=== PATIENT | female | born 1985 | race Caucasian/White ===

== ENCOUNTER 2020-06-22 02:27 | Emergency (ER) | payer SELFPAY ==
[2020-06-22] MEDS ORDERED: Lidocaine 1% PF 5 ML VIAL ONE (03:39)
[2020-06-22] MEDS ORDERED: cefTRIAXone\\ROCEPHIN 500 MG VIAL ONE ×2 (03:39→03:47)
[2020-06-22] MEDS ORDERED: Water For Inject, Bacteriostat 30 ML ONE (03:47)
[2020-06-30 18:53] LABS: GC by PCR Inconclusive (NotDetected)
[2020-06-30 18:54] LABS: Chlamydia by PCR Inconclusive (NotDetected)
== END 2020-06-22 04:04 | disposition home or self-care (01) ==
LOC: ERS 02:27
DX: N72 Inflammatory disease of cervix uteri (principal)
CPT/HCPCS: 72170; 87480; 87491; 87510; 87591; 87660; 96372; J0696

== ENCOUNTER 2020-10-05 18:17 | Emergency (ER) | payer MEDICAID | END 2020-10-05 19:06 | disposition home or self-care (01) | LOC: ERS 18:17 | DX: S00.01XA Abrasion of scalp, initial encounter (principal); X58.XXXA Exposure to other specified factors, initial encounter | CPT/HCPCS: 99283 ==

== ENCOUNTER 2021-07-11 10:35 | Emergency (ER) | payer OTHER | END 2021-07-11 11:52 | disposition home or self-care (01) | LOC: ERS 10:35 | DX: L30.9 Dermatitis, unspecified (principal); L29.9 Pruritus, unspecified; Z87.2 Personal history of diseases of the skin and subcutaneous tissue | CPT/HCPCS: 99282 ==

== ENCOUNTER 2021-12-01 12:23 | Emergency (ER) | payer SELFPAY | END 2021-12-01 12:52 | disposition left against medical advice (07) | LOC: ERS 12:23 | DX: Z53.21 Procedure and treatment not carried out due to patient leaving prior to being seen by health care provider (principal) ==

== ENCOUNTER 2022-11-05 13:11 | Emergency (ER) | payer SELFPAY ==
[2022-11-05 14:22] LABS: #Eosinphils 0.1 thou/uL (0.0-0.7); #Monocytes 0.3 thou/uL (0.11-0.59); %Basophils 0.4 % (0.0-1.0); %Eosinophils 2.3 % (0.0-10.0); %Lymphocytes 34.4 % (21.0-51.0); %Monocytes 6.2 % (0.0-10.0); %Neutrophils 56.5 % (42.0-75.0); Hemoglobin 13.1 g/dL (12.0-16.0); Mean Corpuscular HGB CONC 34.2 g/dL (32.0-36.0); Mean Corpuscular Volume 90.5 fl (78.0-98.0); Mean Platelet Volume 9.8 fL (7.4-10.4); Platelet Count 202 10x3/uL (130-400); RBC Distribution Width 12.2 % (11.5-14.5); Red Blood Cell (RBC) Count 4.23 mill/uL (4.20-5.40); White Blood Cell (WBC) Count 5.3 10x3/uL (4.8-10.8)
[2022-11-05 14:47] LABS: Amphetamine Detected (NotDetected); Barbiturates Screen Not Detected (NotDetected); Benzodiazepine Screen Not Detected (NotDetected); Cocaine Metabolite Screen Not Detected (NotDetected); Methadone Not Detected (NotDetected); Methamphetamine Detected (NotDetected); Opiate Screen Not Detected (NotDetected); Oxycodone Screen Not Detected (NotDetected); Phencyclidine (PCP) Not Detected (NotDetected); THC/Cannabinoid Screen Not Detected (NotDetected); Tricyclic Screen Not Detected (NotDetected)
[2022-11-05 14:47] LABS: Anion Gap 10 mmol/L (10-20); BUN (Urea Nitrogen) 9 mg/dL (7.0-18.7); Calc. Creatinine Clearance 0 mL/min (70-130); Calcium 8.6 mg/dL (7.8-10.44); Carbon Dioxide 24 mmol/L (22-29); Chloride 108 mmol/L (98-107); Estimated GFR 102; Glucose 89 mg/dL (70-105); Potassium 4.1 mmol/L (3.5-5.1); Sodium 138 mmol/L (136-145)
[2022-11-05 14:56] LABS: Acetaminophen Less than 10 mcg/mL (10.0-30.0); Alcohol Less than 10.0 mg/dL (Less than 10); Salicylate Less than 8.0 mg/dL (15.0-30.0)
[2022-11-05 15:03] LABS: HCG, Total Quant Less than 1.20 mIU/mL (See Ranges)
[2022-11-05 15:07] LABS: Thyroid Stimulating Hormone 0.8723 uIU/mL (0.35-4.94)
== END 2022-11-05 16:26 | disposition home or self-care (01) ==
LOC: ERS 13:11
DX: R51.9 Headache, unspecified (principal)
CPT/HCPCS: 70450; 80048; 80306; 80307; 84443; 84702; 85025

== ENCOUNTER 2023-01-11 11:13 | Emergency (ER) | payer SELFPAY ==
[2023-01-11] MEDS ORDERED: Boostrix 0.5 ML (Tdap) VIAL (>/=7 yrs of age) ONE (12:46)
== END 2023-01-11 13:10 | disposition home or self-care (01) ==
LOC: ERS 11:13
DX: S81.812A Laceration without foreign body, left lower leg, initial encounter (principal); Z23 Encounter for immunization; W45.0XXA Nail entering through skin, initial encounter
CPT/HCPCS: 90471; 90715

== ENCOUNTER 2023-01-20 13:18 | Emergency (ER) | payer SELFPAY ==
[~2023-01-20 13:18] MED LIST: Iopamidol-370 76% 500 ML MDV (1 ML CHARGE) ONE
[2023-01-20 13:46] LABS: #Eosinphils 0.1 thou/uL (0.0-0.7); #Monocytes 0.4 thou/uL (0.11-0.59); #Neutrophils 2.3 thou/uL (1.40-6.50); %Basophils 0.7 % (0.0-1.0); %Eosinophils 2.2 % (0.0-10.0); %Monocytes 7.6 % (0.0-10.0); %Neutrophils 42.3 % (42.0-75.0); Hematocrit 38.9 % (36.0-47.0); Hemoglobin 13.1 g/dL (12.0-16.0); Mean Corpuscular HGB CONC 33.7 g/dL (32.0-36.0); Mean Corpuscular Hemoglobin 30.4 pg (27.0-31.0); Mean Corpuscular Volume 90.3 fl (78.0-98.0); Mean Platelet Volume 9.6 fL (7.4-10.4); Platelet Count 264 10x3/uL (130-400); RBC Distribution Width 12.2 % (11.5-14.5); Red Blood Cell (RBC) Count 4.31 mill/uL (4.20-5.40); White Blood Cell (WBC) Count 5.4 10x3/uL (4.8-10.8)
[2023-01-20 14:01] LABS: ALT (SGPT) 11 U/L (8-55); AST (SGOT) 16 U/L (5-34); Albumin 4.1 g/dL (3.5-5.0); Alkaline Phosphatase 66 U/L (40-110); Anion Gap 11 mmol/L (10-20); BUN (Urea Nitrogen) 12 mg/dL (7.0-18.7); Bilirubin, Total 0.6 mg/dL (0.2-1.2); Calc. Creatinine Clearance 0 mL/min (70-130); Calcium 8.9 mg/dL (7.8-10.44); Carbon Dioxide 22 mmol/L (22-29); Chloride 108 mmol/L (98-107); Estimated GFR 96; Globulin 2.2 g/dL (2.4-3.5); Glucose 76 mg/dL (70-105); Lipase 14 U/L (8-78); Potassium 4.1 mmol/L (3.5-5.1); Protein, Total 6.3 g/dL (6.0-8.3); Sodium 137 mmol/L (136-145)
[2023-01-20 14:30] LABS: BHCG - Serum Negative (NEGATIVE); Pregs Control Background? CLEAR/WHITE (CLR/WHITE); Pregs Control Bar Appear? YES (CONTROL BAR)
[2023-01-20] MEDS ORDERED: Ketorolac Tromethamine 30 MG/ML VIAL ONE (15:30)
[2023-01-20 17:40] LABS: Bacteria/HPF None Seen HPF (None Seen); Bilirubin Negative (Negative); Blood, Urine Negative (Negative); CAUTI Indications for Culture Pelvic or flank pain; Clarity Clear (Clear); Glucose, Urine (Dipstick) Normal (Negative); Ketone, Urine 20 mg/dL (Negative); Leukocyte Negative Leu/uL (Negative); Nitrite Negative (Negative); Protein, Urine (Dipstick) 20 mg/dL (Neg-Trace); RBC/HPF 0-3 HPF (0-3); Squamous Epithelial 0-3 HPF (0-3); Urobilinogen Normal mg/dL (Less than 2); WBC/HPF 0-3 HPF (0-3); pH, Urine 6.5 (5.0-9.0)
[2023-01-20 17:43] LABS: Specific Gravity, Urine Greater than 1.060 (1.002-1.036)
[2023-01-20 17:44] LABS: Urine Culture Reflex No No
== END 2023-01-20 18:39 | disposition home or self-care (01) ==
LOC: ERS 13:18
DX: R10.9 Unspecified abdominal pain (principal)
CPT/HCPCS: 36415; 74177; 80053; 81001; 83690; 84703; 85025; 96361; 96374; J1885; Q9967

== ENCOUNTER 2023-03-04 13:30 | Emergency (ER) | payer SELFPAY ==
[2023-03-04 15:18] LABS: SARS-CoV-2 NAA Rapid Test Not Detected (NotDetected)
== END 2023-03-04 15:54 | disposition home or self-care (01) ==
LOC: ERS 13:30
DX: J06.9 Acute upper respiratory infection, unspecified (principal); Z20.822 Contact with and (suspected) exposure to COVID-19
CPT/HCPCS: 99284